=== PATIENT | female | born 2000 | race Caucasian/White ===

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

== ENCOUNTER 2022-04-18 09:38 | Emergency (ER) | payer BC ==
[2022-04-18 10:57] LABS: CARBON DIOXIDE,CO2 25.7 mmol/L (21.0-32.0)
== END 2022-04-18 11:08 | disposition home or self-care (01) ==
LOC: MW.ED 09:38
DX: O99.891 Other specified diseases and conditions complicating pregnancy (principal); R10.84 Generalized abdominal pain; Z88.6 Allergy status to analgesic agent; Z3A.11 11 weeks gestation of pregnancy
CPT/HCPCS: 36415; 80053; 81003; 85025; 99284

== ENCOUNTER 2022-11-02 05:07 | Inpatient (IN) | payer MEDICAID ==
[2022-11-02] MEDS ORDERED: Terbutaline 1 MG/ML SDV SUBCUT PRN (05:33)
[2022-11-02] MEDS ORDERED: Sodium Chloride 0.9% 2.5 ML Syringe FLUSH PRN (05:33)
[2022-11-02] MEDS ORDERED: Tranexamic Acid 1,000 MG in Sodium Chloride 0.9% 100 ML IV PRN (05:33)
[2022-11-02] MEDS ORDERED: Methylergonovine 0.2 MG/1 ML Amp IM PRN (05:33)
[2022-11-02] MEDS ORDERED: Ondansetron 4 MG/2 ML SDV IVPUSH PRN (05:33)
[2022-11-02] MEDS ORDERED: Lidocaine 1% 50 ML MDV INJECT PRN (05:33)
[2022-11-02] MEDS ORDERED: Butorphanol 1 MG/ML SDV IVPUSH PRN (05:33)
[2022-11-02] MEDS ORDERED: Water For Irrigation,Sterile 1,000 ML Container IRR PRN (05:33)
[2022-11-02] MEDS ORDERED: Carboprost Tromethamine 250 MCG/1 mL Vial IM PRN (05:33)
[2022-11-02] MEDS ORDERED: Sodium Chloride 0.9% 20 ML SDV IV PRN (05:33)
[2022-11-02] MEDS ORDERED: Misoprostol 200 MCG Tab PO PRN (05:33)
[2022-11-02] MEDS ORDERED: Sodium Chloride 0.9% 10 ML Syringe FLUSH PRN (05:33)
[2022-11-02] MEDS ORDERED: Oxytocin/0.9 % Sodium Chloride 30 UNIT/500 ML BAG IV SCH ×2 (05:45)
[2022-11-02] MEDS: Lactated Ringers 1,000 ML IV SCH ×3 (06:00→09:50)
[2022-11-02 06:22] LABS: HEMATOCRIT 34.8 % (36.0-46.0); HEMOGLOBIN 10.9 g/dL (12.0-16.0); MEAN CORPUSCULAR HEMOGLOBIN 24.2 pg (27.0-32.0); MEAN CORPUSCULAR HGB CONC 31.3 g/dL (31.0-37.0); MEAN CORPUSCULAR VOLUME 77.3 fL (80.0-98.0); MEAN PLATELET VOLUME 9.7 fL (7.40-12.00); RED BLOOD CELL COUNT 4.5 M/uL (4.30-5.90); WHITE BLOOD CELL COUNT,WBC 8.95 K/uL (4.0-11.0)
[2022-11-02] MEDS ORDERED: Phenylephrine HCl 0.5 MG/5 ML AMP IVPUSH PRN (09:18)
[2022-11-02] MEDS ORDERED: ePHEDrine 50 MG/ML SDV IVPUSH PRN ×2 (09:18)
[2022-11-02] MEDS ORDERED: Dexmedetomidine 200 MCG/2 ML SDV ONE (09:30)
[2022-11-02] MEDS ORDERED: Ropivacaine HCl/PF 400 MG in Premix Bag 1 BAG EPIDUR SCH (09:30)
[2022-11-02] MEDS ORDERED: Ibuprofen 400 MG Tab PO PRN (16:16)
[2022-11-02] MEDS ORDERED: Lanolin 100% Cream 7 GM Tube TOP PRN (16:16)
[2022-11-02] MEDS ORDERED: Ibuprofen 800 MG Tab PO PRN (16:16)
[2022-11-02] MEDS ORDERED: oxyCODONE 5 MG Tab PO PRN (16:16)
[2022-11-02] MEDS ORDERED: Docusate Sodium 100 MG Cap PO PRN (16:16)
[2022-11-02] MEDS ORDERED: Acetaminophen 500 MG Tab PO PRN (16:16)
[2022-11-02] MEDS ORDERED: Bisacodyl 10 MG Supp RECTAL PRN (16:16)
[2022-11-02] MEDS ORDERED: Benzocaine/Menthol 20%-0.5% Spray 78 GM Cannister TOP PRN (16:16)
[2022-11-02] MEDS ORDERED: Witch Hazel Medicated Pads 40/Jar TOP PRN (16:16)
[2022-11-02 16:30] LABS: PH,UMBILICAL ARTERIAL 7.196 (7.18-7.38); PH,UMBILICAL VENOUS 7.289 (7.25-7.45)
[2022-11-03] MEDS: Acetaminophen 500 MG Tab PO PRN ×2 (00:05→04:43)
[2022-11-03 05:46] LABS: HEMOGLOBIN 9.8 g/dL (12.0-16.0)
== END 2022-11-03 18:45 | disposition home or self-care (01) | DRG 807 ==
LOC: MW.OBCHECK 05:07 → MW.OB 05:08 → MW.OBCHECK 05:32 → MW.OB 05:33 → OBSVTOIN 15:54 → MW.OB 20:01
PROVIDERS: ADMIT Obstetrics & Gynecology; ATTEND Obstetrics & Gynecology
PROC: 10E0XZZ Delivery of Products of Conception, External Approach (ICD-10-PCS; principal; 2022-11-02)
PROC: 3E0R3BZ Introduction of Anesthetic Agent into Spinal Canal, Percutaneous Approach (ICD-10-PCS; 2022-11-02)
PROC: 00HU33Z Insertion of Infusion Device into Spinal Canal, Percutaneous Approach (ICD-10-PCS; 2022-11-02)
PROC: 3E033VJ Introduction of Other Hormone into Peripheral Vein, Percutaneous Approach (ICD-10-PCS; 2022-11-02)
DX: O77.0 Labor and delivery complicated by meconium in amniotic fluid (principal); Z37.0 Single live birth; Z3A.40 40 weeks gestation of pregnancy
CPT/HCPCS: 36415; 51702; 59025; 59409; 82803; 85014; 85018; 85027; 86592; 86850; 86900; 86901; A9270-GY; J2405; J2590; J3490; J7120

== ENCOUNTER 2023-05-20 02:39 | Emergency (ER) | payer MEDICAID ==
[2023-05-20 03:16] LABS: BASOPHILS ABSOLUTE AUTO 0.05 K/uL (0.00-0.20); BASOPHILS PERCENT AUTO 0.3 % (0.0-1.0); EOSINOPHILS ABSOLUTE AUTO 0.22 K/uL (0.00-0.45); EOSINOPHILS PERCENT AUTO 1.4 % (0.0-6.0); HEMOGLOBIN 12.9 g/dL (12.0-16.0); IMMATURE GRAN ABSOLUTE AUTO 0.06 K/uL (0.00-0.05); IMMATURE GRAN PERCENT AUTO 0.4 % (0.0-0.4); LYMPHOCYTES ABSOLUTE AUTO 1.88 K/uL (1.00-4.80); LYMPHOCYTES PERCENT AUTO 11.6 % (24.0-44.0); MEAN CORPUSCULAR HEMOGLOBIN 26.2 pg (28.0-32.0); MEAN CORPUSCULAR HGB CONC 33.9 g/dL (32.0-36.0); MEAN CORPUSCULAR VOLUME 77.2 fL (83.0-99.0); MEAN PLATELET VOLUME 9.5 fL (9.4-12.3); MONOCYTES ABSOLUTE AUTO 1.03 K/uL (0.00-0.80); MONOCYTES PERCENT AUTO 6.3 % (0.0-8.0); PLATELET COUNT,PLT 352 K/uL (150-400); RED BLOOD CELL COUNT 4.92 M/uL (4.10-5.30); WHITE BLOOD CELL COUNT,WBC 16.24 K/uL (3.9-11.3)
[2023-05-20 03:58] LABS: LACTIC ACID 0.7 mmol/L (0.4-2.0)
[2023-05-20 04:03] LABS: A/G RATIO 0.8 (0.9-1.6); ALANINE AMINOTRANSFERASE,ALT 39 IU/L (14-63); ALBUMIN 3.2 g/dL (3.4-5.0); ALKALINE PHOSPHATASE 67 U/L (46-116); ASPARTATE AMNIOTRANSFERASE,AST 21 IU/L (15-37); BILIRUBIN TOTAL 0.4 mg/dL (0.2-1.0); BLOOD UREA NITROGEN,BUN 9 mg/dL (7.0-18.0); CALCIUM 8.7 mg/dL (8.5-10.1); CARBON DIOXIDE,CO2 25.3 mmol/L (21.0-32.0); CHLORIDE,CL 101 mmol/L (98-107); CREATININE 0.7 mg/dL (0.6-1.0); GLUCOSE RANDOM 103 mg/dL (74-106); POTASSIUM,K 3.5 mmol/L (3.5-5.1); PROTEIN TOTAL,TP 7.1 g/dL (6.4-8.2); SODIUM,NA 136 mmol/L (136-145)
[2023-05-20 04:05] LABS: ESTIMATED GFR 126 mL/min (>60)
[2023-05-20 04:17] LABS: APPEARANCE,URINE SLT CLOUDY; COLOR,URINE YELLOW; GLUCOSE,URINE NEGATIVE (NEGATIVE); KETONES,URINE TRACE mg/dL (NEGATIVE); LEUKOCYTE ESTERASE,URINE NEGATIVE (NEGATIVE); NITRITE,URINE NEGATIVE (NEGATIVE); OCCULT BLOOD,URINE NEGATIVE (NEGATIVE); PH,URINE 5.5 (5.0-8.0); PROTEIN,URINE 30 mg/dL (NEGATIVE); UROBILINOGEN,URINE 0.2 EU/dL (<2.0)
[2023-05-20 04:22] LABS: BILIRUBIN,URINE SMALL (NEGATIVE)
[2023-05-20 04:26] LABS: EPITHELIAL CELLS,URINE MODERATE (NONE-FEW); MUCUS,URINE MODERATE (NONE-MOD); WBC,URINE 0-2 (0-5/HPF)
[2023-05-20 04:41] LABS: BACTERIA,URINE 1+ (NEGATIVE)
== END 2023-05-20 04:54 | disposition home or self-care (01) ==
LOC: MW.ED 02:39
DX: O99.611 Diseases of the digestive system complicating pregnancy, first trimester (principal); O23.91 Unspecified genitourinary tract infection in pregnancy, first trimester; Z3A.12 12 weeks gestation of pregnancy; Z88.6 Allergy status to analgesic agent
CPT/HCPCS: 36415; 76801; 76801-26; 80053; 81001; 83605; 84702; 85025; 86900; 86901; 99283; 99284

== ENCOUNTER 2023-12-04 11:33 | Inpatient (IN) | payer MEDICAID ==
[2023-12-04] MEDS: Lactated Ringers 1,000 ML IV SCH (12:19)
[2023-12-04] MEDS ORDERED: Lidocaine 1% 50 ML MDV INJECT PRN (12:25)
[2023-12-04] MEDS ORDERED: Carboprost Tromethamine 250 MCG/1 mL Vial IM PRN (12:25)
[2023-12-04] MEDS ORDERED: Sodium Chloride 0.9% 10 ML Syringe FLUSH PRN (12:25)
[2023-12-04] MEDS ORDERED: Butorphanol 2 MG/ML SDV IVPUSH PRN (12:25)
[2023-12-04] MEDS ORDERED: Misoprostol 200 MCG Tab PO PRN (12:25)
[2023-12-04] MEDS ORDERED: Tranexamic Acid IN NACL,ISO-OS 1,000 MG in Premix Bag 1 BAG IV PRN (12:25)
[2023-12-04] MEDS ORDERED: Nalbuphine 10 MG/1 ML Vial IVPUSH PRN (12:25)
[2023-12-04] MEDS ORDERED: Methylergonovine 0.2 MG/1 ML Amp IM PRN (12:25)
[2023-12-04] MEDS ORDERED: Sodium Chloride 0.9% 2.5 ML Syringe FLUSH PRN (12:25)
[2023-12-04] MEDS ORDERED: Water For Irrigation,Sterile 1,000 ML Container IRR PRN (12:25)
[2023-12-04] MEDS ORDERED: Sodium Chloride 0.9% 20 ML SDV IV PRN (12:25)
[2023-12-04 12:33] LABS: HEMOGLOBIN 10.6 g/dL (12.0-16.0); MEAN CORPUSCULAR HEMOGLOBIN 22.6 pg (28.0-32.0); MEAN CORPUSCULAR HGB CONC 30.3 g/dL (32.0-36.0); MEAN CORPUSCULAR VOLUME 74.6 fL (83.0-99.0); MEAN PLATELET VOLUME 10.3 fL (9.4-12.3); PLATELET COUNT,PLT 388 K/uL (150-400); RED BLOOD CELL COUNT 4.69 M/uL (4.10-5.30); WHITE BLOOD CELL COUNT,WBC 10.99 K/uL (3.9-11.3)
[2023-12-04] MEDS: Ropivacaine HCl/PF 200 ML ONE (13:02)
[2023-12-04] MEDS: Phenylephrine HCl In 0.9% NaCl 1 MG/10 ML Syringe IVPUSH PRN (13:07)
[2023-12-04] MEDS ORDERED: ePHEDrine 50 MG/ML SDV IVPUSH PRN ×2 (13:10)
[2023-12-04] MEDS ORDERED: ePHEDrine 50 MG/ML SDV IM PRN (13:12)
[2023-12-04] MEDS ORDERED: Ropivacaine HCl/PF 400 MG in Premix Bag 1 BAG EPIDUR SCH (13:15)
[2023-12-04] MEDS: Ondansetron 4 MG/2 ML SDV IVPUSH PRN (13:22)
[2023-12-04] MEDS ORDERED: Benzocaine/Menthol 20%-0.5% Spray 78 GM Cannister TOP PRN (13:46)
[2023-12-04] MEDS ORDERED: oxyCODONE 5 MG Tab PO PRN (13:46)
[2023-12-04] MEDS ORDERED: Witch Hazel Medicated Pads 40/Jar TOP PRN (13:46)
[2023-12-04] MEDS ORDERED: Docusate Sodium 100 MG Cap PO PRN (13:46)
[2023-12-04] MEDS ORDERED: Lanolin 100% Cream 7 GM Tube TOP PRN (13:46)
[2023-12-04] MEDS ORDERED: Ibuprofen 800 MG Tab PO PRN (13:46)
[2023-12-04] MEDS ORDERED: Misoprostol 200 MCG Tab RECTAL PRN (13:56)
[2023-12-04] MEDS: Oxytocin/0.9 % Sodium Chloride 30 UNIT/500 ML BAG IV SCH (15:20)
[2023-12-04] MEDS: Phenylephrine HCl In 0.9% NaCl 1 MG/10 ML Syringe ONE ×2 (16:07→16:08)
[2023-12-04] MEDS: Bupivacaine 0.5% 10 ML SDV ONE (16:07)
[2023-12-04 19:30] LABS: PH,UMBILICAL ARTERIAL 7.334 (7.18-7.38); PH,UMBILICAL VENOUS 7.354 (7.25-7.45)
[2023-12-04] MEDS: Acetaminophen 500 MG Tab PO PRN (21:52)
[2023-12-05 06:01] LABS: BASOPHILS ABSOLUTE AUTO 0.04 K/uL (0.00-0.20); BASOPHILS PERCENT AUTO 0.3 % (0.0-1.0); EOSINOPHILS ABSOLUTE AUTO 0.14 K/uL (0.00-0.45); EOSINOPHILS PERCENT AUTO 1.1 % (0.0-6.0); HEMATOCRIT 32.5 % (37.0-47.0); HEMOGLOBIN 9.6 g/dL (12.0-16.0); IMMATURE GRAN ABSOLUTE AUTO 0.07 K/uL (0.00-0.05); IMMATURE GRAN PERCENT AUTO 0.6 % (0.0-0.4); LYMPHOCYTES ABSOLUTE AUTO 2.16 K/uL (1.00-4.80); LYMPHOCYTES PERCENT AUTO 17.3 % (24.0-44.0); MEAN CORPUSCULAR HEMOGLOBIN 22.7 pg (28.0-32.0); MEAN CORPUSCULAR HGB CONC 29.5 g/dL (32.0-36.0); MEAN PLATELET VOLUME 10.8 fL (9.4-12.3); MONOCYTES ABSOLUTE AUTO 0.87 K/uL (0.00-0.80); MONOCYTES PERCENT AUTO 6.9 % (0.0-8.0); NEUTROPHILS ABSOLUTE AUTO 9.24 K/uL (1.80-7.70); NEUTROPHILS PERCENT AUTO 73.8 % (41.0-71.0); PLATELET COUNT,PLT 313 K/uL (150-400); RED BLOOD CELL COUNT 4.22 M/uL (4.10-5.30); WHITE BLOOD CELL COUNT,WBC 12.52 K/uL (3.9-11.3)
[2023-12-05] MEDS: Measles, Mumps & Rubella Vaccine 0.5 ML SDV SUBCUT ONE (07:49)
== END 2023-12-05 17:21 | disposition home or self-care (01) | DRG 807 ==
LOC: MW.OBCHECK 11:33 → MW.OB 11:37 → MW.OBCHECK 12:25 → MW.OB 12:54 → OBSVTOIN 15:18 → MW.OB 15:18
PROVIDERS: ADMIT Allergy & Immunology; ATTEND Obstetrics & Gynecology
PROC: 10E0XZZ Delivery of Products of Conception, External Approach (ICD-10-PCS; principal; 2023-12-04)
PROC: 10907ZC Drainage of Amniotic Fluid, Therapeutic from Products of Conception, Via Natural or Artificial Opening (ICD-10-PCS; 2023-12-04)
PROC: 3E0R3BZ Introduction of Anesthetic Agent into Spinal Canal, Percutaneous Approach (ICD-10-PCS; 2023-12-04)
PROC: 00HU33Z Insertion of Infusion Device into Spinal Canal, Percutaneous Approach (ICD-10-PCS; 2023-12-04)
DX: O99.02 Anemia complicating childbirth (principal); Z37.0 Single live birth; Z3A.39 39 weeks gestation of pregnancy; O77.0 Labor and delivery complicated by meconium in amniotic fluid; D64.9 Anemia, unspecified
CPT/HCPCS: 36415; 51702; 59025; 59409; 82803; 85025; 85027; 86592; 86850; 86900; 86901; A9270-GY; J0665; J2371; J2405; J2590; J2795; J7120

== ENCOUNTER 2024-01-25 08:36 | Emergency (ER) | payer MEDICAID ==
[2024-01-25 09:50] LABS: BASOPHILS ABSOLUTE AUTO 0.03 K/uL (0.00-0.20); BASOPHILS PERCENT AUTO 0.5 % (0.0-1.0); EOSINOPHILS ABSOLUTE AUTO 0.27 K/uL (0.00-0.45); EOSINOPHILS PERCENT AUTO 4.5 % (0.0-6.0); HEMATOCRIT 38.5 % (37.0-47.0); HEMOGLOBIN 12.5 g/dL (12.0-16.0); IMMATURE GRAN ABSOLUTE AUTO 0.01 K/uL (0.00-0.05); IMMATURE GRAN PERCENT AUTO 0.2 % (0.0-0.4); LYMPHOCYTES ABSOLUTE AUTO 1.64 K/uL (1.00-4.80); LYMPHOCYTES PERCENT AUTO 27.5 % (24.0-44.0); MEAN CORPUSCULAR HEMOGLOBIN 26.1 pg (28.0-32.0); MEAN CORPUSCULAR HGB CONC 32.5 g/dL (32.0-36.0); MEAN CORPUSCULAR VOLUME 80.4 fL (83.0-99.0); MEAN PLATELET VOLUME 9.3 fL (9.4-12.3); MONOCYTES ABSOLUTE AUTO 0.47 K/uL (0.00-0.80); MONOCYTES PERCENT AUTO 7.9 % (0.0-8.0); NEUTROPHILS ABSOLUTE AUTO 3.55 K/uL (1.80-7.70); NEUTROPHILS PERCENT AUTO 59.4 % (41.0-71.0); PLATELET COUNT,PLT 283 K/uL (150-400); RED BLOOD CELL COUNT 4.79 M/uL (4.10-5.30); WHITE BLOOD CELL COUNT,WBC 5.97 K/uL (3.9-11.3)
== END 2024-01-25 11:07 | disposition home or self-care (01) ==
LOC: MW.ED 08:36
DX: N93.9 Abnormal uterine and vaginal bleeding, unspecified (principal); Z88.6 Allergy status to analgesic agent
CPT/HCPCS: 36415; 84702; 85025; 86850; 86900; 86901; 99282; 99284

== ENCOUNTER 2024-03-15 03:25 | Emergency (ER) | payer MEDICAID ==
[2024-03-15] MEDS: Dexamethasone 4 MG Tab PO STA (04:17)
[2024-03-15] MEDS: Acetaminophen 500 MG Tab PO ONE (04:18)
== END 2024-03-15 04:22 | disposition home or self-care (01) ==
LOC: MW.ED 03:25
DX: J02.9 Acute pharyngitis, unspecified (principal); Z88.6 Allergy status to analgesic agent
CPT/HCPCS: 87651; 99283; A9270; J8540

== ENCOUNTER 2024-05-17 17:26 | Emergency (ER) | payer MEDICAID ==
[2024-05-17] MEDS ORDERED: Sodium Chloride 0.9% 2.5 ML Syringe FLUSH PRN (17:40)
[2024-05-17] MEDS ORDERED: Sodium Chloride 0.9% 10 ML Syringe FLUSH PRN (17:40)
[2024-05-17 18:11] LABS: BASOPHILS ABSOLUTE AUTO 0.05 K/uL (0.00-0.20); BASOPHILS PERCENT AUTO 0.5 % (0.0-1.0); EOSINOPHILS ABSOLUTE AUTO 0.31 K/uL (0.00-0.45); EOSINOPHILS PERCENT AUTO 2.9 % (0.0-6.0); HEMATOCRIT 43.8 % (37.0-47.0); HEMOGLOBIN 14.4 g/dL (12.0-16.0); IMMATURE GRAN ABSOLUTE AUTO 0.03 K/uL (0.00-0.05); IMMATURE GRAN PERCENT AUTO 0.3 % (0.0-0.4); LYMPHOCYTES ABSOLUTE AUTO 1.08 K/uL (1.00-4.80); MEAN CORPUSCULAR HEMOGLOBIN 27.3 pg (28.0-32.0); MEAN CORPUSCULAR HGB CONC 32.9 g/dL (32.0-36.0); MEAN PLATELET VOLUME 9.4 fL (9.4-12.3); MONOCYTES ABSOLUTE AUTO 0.56 K/uL (0.00-0.80); MONOCYTES PERCENT AUTO 5.2 % (0.0-8.0); NEUTROPHILS PERCENT AUTO 81.1 % (41.0-71.0); PLATELET COUNT,PLT 288 K/uL (150-400); RED BLOOD CELL COUNT 5.28 M/uL (4.10-5.30); WHITE BLOOD CELL COUNT,WBC 10.83 K/uL (3.9-11.3)
[2024-05-17 18:12] LABS: APPEARANCE,URINE CLEAR; BILIRUBIN,URINE NEGATIVE (NEGATIVE); COLOR,URINE YELLOW; GLUCOSE,URINE NEGATIVE (NEGATIVE); KETONES,URINE NEGATIVE (NEGATIVE); LEUKOCYTE ESTERASE,URINE NEGATIVE (NEGATIVE); NITRITE,URINE NEGATIVE (NEGATIVE); OCCULT BLOOD,URINE NEGATIVE (NEGATIVE); PH,URINE 7.5 (5.0-8.0); PROTEIN,URINE NEGATIVE (NEGATIVE); UROBILINOGEN,URINE 0.2 EU/dL (<2.0)
[2024-05-17] MEDS: Ondansetron 4 MG/2 ML SDV IVPUSH STA (18:16)
[2024-05-17] MEDS: Sodium Chloride 0.9% 1,000 ML IV STA (18:16)
[2024-05-17 18:38] LABS: ALBUMIN 3.8 g/dL (3.4-5.0); BILIRUBIN TOTAL 0.5 mg/dL (0.2-1.0); CARBON DIOXIDE,CO2 28.2 mmol/L (21.0-32.0); CREATININE 0.7 mg/dL (0.6-1.0); EST CRCL DRUG DOSING (CG) 127.17 mL/min; POTASSIUM,K 3.9 mmol/L (3.5-5.1); PROTEIN TOTAL,TP 7.7 g/dL (6.4-8.2)
== END 2024-05-17 20:09 | disposition home or self-care (01) ==
LOC: MW.ED 17:26
DX: A08.4 Viral intestinal infection, unspecified (principal); Z75.8 Other problems related to medical facilities and other health care
CPT/HCPCS: 36415; 80053; 81003; 83690; 83735; 84703; 85025; 96361; 96374; 99284; J2405; J7030

== ENCOUNTER 2024-06-10 02:48 | Emergency (ER) | payer MEDICAID ==
[2024-06-10 03:24] LABS: BILIRUBIN,URINE NEGATIVE (NEGATIVE); COLOR,URINE YELLOW; GLUCOSE,URINE NEGATIVE (NEGATIVE); KETONES,URINE NEGATIVE (NEGATIVE); LEUKOCYTE ESTERASE,URINE NEGATIVE (NEGATIVE); NITRITE,URINE NEGATIVE (NEGATIVE); OCCULT BLOOD,URINE NEGATIVE (NEGATIVE); PROTEIN,URINE NEGATIVE (NEGATIVE); UROBILINOGEN,URINE 0.2 EU/dL (<2.0)
[2024-06-10 03:27] LABS: APPEARANCE,URINE HAZY
[2024-06-10] MEDS: Ketorolac 30 MG/ML SDV IVPUSH ONE (03:33)
[2024-06-10 03:38] LABS: BASOPHILS ABSOLUTE AUTO 0.06 K/uL (0.00-0.20); BASOPHILS PERCENT AUTO 0.6 % (0.0-1.0); EOSINOPHILS ABSOLUTE AUTO 0.44 K/uL (0.00-0.45); EOSINOPHILS PERCENT AUTO 4.7 % (0.0-6.0); HEMATOCRIT 39.1 % (37.0-47.0); HEMOGLOBIN 13.1 g/dL (12.0-16.0); IMMATURE GRAN ABSOLUTE AUTO 0.02 K/uL (0.00-0.05); IMMATURE GRAN PERCENT AUTO 0.2 % (0.0-0.4); LYMPHOCYTES ABSOLUTE AUTO 2.73 K/uL (1.00-4.80); LYMPHOCYTES PERCENT AUTO 28.9 % (24.0-44.0); MEAN CORPUSCULAR HEMOGLOBIN 27.8 pg (28.0-32.0); MEAN CORPUSCULAR HGB CONC 33.5 g/dL (32.0-36.0); MEAN PLATELET VOLUME 9.5 fL (9.4-12.3); MONOCYTES ABSOLUTE AUTO 0.77 K/uL (0.00-0.80); MONOCYTES PERCENT AUTO 8.2 % (0.0-8.0); NEUTROPHILS ABSOLUTE AUTO 5.42 K/uL (1.80-7.70); NEUTROPHILS PERCENT AUTO 57.4 % (41.0-71.0); PLATELET COUNT,PLT 313 K/uL (150-400); RED BLOOD CELL COUNT 4.71 M/uL (4.10-5.30); WHITE BLOOD CELL COUNT,WBC 9.44 K/uL (3.9-11.3)
[2024-06-10] MEDS: Iopamidol 755 MG/ML 500 ML Multipack Bottle IVPUSH ONE (03:48)
[2024-06-10 04:01] LABS: A/G RATIO 0.9 (0.9-1.6); ALBUMIN 3.6 g/dL (3.4-5.0); BILIRUBIN TOTAL 0.2 mg/dL (0.2-1.0); CALCIUM 8.7 mg/dL (8.5-10.1); CARBON DIOXIDE,CO2 28.8 mmol/L (21.0-32.0); EST CRCL DRUG DOSING (CG) 85.81 mL/min; POTASSIUM,K 3.7 mmol/L (3.5-5.1); PROTEIN TOTAL,TP 7.6 g/dL (6.4-8.2)
== END 2024-06-10 06:02 | disposition home or self-care (01) ==
LOC: MW.ED 02:48
DX: K80.50 Calculus of bile duct without cholangitis or cholecystitis without obstruction (principal); Z88.8 Allergy status to other drugs, medicaments and biological substances; Z79.899 Other long term (current) drug therapy
CPT/HCPCS: 36415; 74177; 80053; 81003; 81025; 83690; 85025; 96374; 99284; J1885; Q9967

== ENCOUNTER 2024-08-09 02:17 | Emergency (ER) | payer MEDICAID ==
[2024-08-09] MEDS ORDERED: HYDROmorphone 0.5 MG/0.5 ML Syringe ONE (02:53)
[2024-08-09] MEDS ORDERED: Ondansetron 4 MG Tab.DIS ONE (02:53)
[2024-08-09] MEDS: Ondansetron 4 MG Tab.DIS PO ONE (02:59)
[2024-08-09] MEDS: HYDROmorphone 0.5 MG/0.5 ML Syringe IM ONE (03:02)
[2024-08-09 06:06] LABS: A/G RATIO 0.9 (0.9-1.6); ALBUMIN 3.5 g/dL (3.4-5.0); BILIRUBIN TOTAL 0.3 mg/dL (0.2-1.0); CALCIUM 8.8 mg/dL (8.5-10.1); CARBON DIOXIDE,CO2 28.3 mmol/L (21.0-32.0); CREATININE 0.7 mg/dL (0.6-1.0); EST CRCL DRUG DOSING (CG) 122.59 mL/min; POTASSIUM,K 4.2 mmol/L (3.5-5.1); PROTEIN TOTAL,TP 7.2 g/dL (6.4-8.2)
[2024-08-09 06:07] LABS: BASOPHILS ABSOLUTE AUTO 0.07 K/uL (0.00-0.20); BASOPHILS PERCENT AUTO 0.7 % (0.0-1.0); EOSINOPHILS ABSOLUTE AUTO 0.46 K/uL (0.00-0.45); EOSINOPHILS PERCENT AUTO 4.6 % (0.0-6.0); HEMATOCRIT 39.9 % (37.0-47.0); HEMOGLOBIN 13.2 g/dL (12.0-16.0); IMMATURE GRAN ABSOLUTE AUTO 0.06 K/uL (0.00-0.05); IMMATURE GRAN PERCENT AUTO 0.6 % (0.0-0.4); LYMPHOCYTES ABSOLUTE AUTO 3.77 K/uL (1.00-4.80); LYMPHOCYTES PERCENT AUTO 37.9 % (24.0-44.0); MEAN CORPUSCULAR HEMOGLOBIN 27.5 pg (28.0-32.0); MEAN CORPUSCULAR HGB CONC 33.1 g/dL (32.0-36.0); MEAN CORPUSCULAR VOLUME 83.1 fL (83.0-99.0); MEAN PLATELET VOLUME 9.2 fL (9.4-12.3); MONOCYTES ABSOLUTE AUTO 0.88 K/uL (0.00-0.80); MONOCYTES PERCENT AUTO 8.8 % (0.0-8.0); NEUTROPHILS ABSOLUTE AUTO 4.71 K/uL (1.80-7.70); NEUTROPHILS PERCENT AUTO 47.4 % (41.0-71.0); PLATELET COUNT,PLT 336 K/uL (150-400); WHITE BLOOD CELL COUNT,WBC 9.95 K/uL (3.9-11.3)
== END 2024-08-09 03:59 | disposition home or self-care (01) ==
LOC: MW.ED 02:17
DX: R10.31 Right lower quadrant pain (principal)
CPT/HCPCS: 36415; 76705; 80053; 81025; 83690; 85025; 96372; 99284; A9270

== ENCOUNTER 2024-11-21 20:13 | Emergency (ER) | payer MEDICAID ==
[2024-11-21 20:32] LABS: APPEARANCE,URINE CLOUDY; GLUCOSE,URINE NEGATIVE (NEGATIVE); OCCULT BLOOD,URINE LARGE (NEGATIVE)
[2024-11-21 20:39] LABS: EPITHELIAL CELLS,URINE FEW (NONE-FEW)
[2024-11-21] MEDS: Lidocaine 1% PF 2 ML SDV INJECT ONE (21:18)
== END 2024-11-21 21:45 | disposition home or self-care (01) ==
LOC: MW.ED 20:13
DX: N39.0 Urinary tract infection, site not specified (principal); Z88.8 Allergy status to other drugs, medicaments and biological substances; Z79.899 Other long term (current) drug therapy
CPT/HCPCS: 81001; 81025; 87086; 96372; 99283; J0696; J2003